=== PATIENT | female | born 1955 | race Caucasian/White ===

== ENCOUNTER 2020-12-05 09:27 | Emergency (ER) | payer OTHER ==
[~2020-12-05] VITALS: Ht 152.4 cm; Wt 54.4 kg
[~2020-12-05 09:27] MED LIST: BCOIRO PO; CALCIUM PO; CHOL10002 PO; CONESTTC PV; DHEA PO; ESOM20 PO; IBUP400 PO; PROGESTERONE CREAM VAG; VITAMIN C COMPLEX PO; VITAMIN D PO; VITAMIN D3 PO; [UNRECOGNIZED DRUG - OTHER] PO
[2020-12-05] MEDS ORDERED: ZOCOR20 MG PO (09:42)
[2020-12-05] MEDS ORDERED: METO50ER PO (09:43)
[2020-12-05] MEDS ORDERED: METO50 PO (09:44)
[2020-12-05] MEDS ORDERED: GABA100 PO ×2 (09:45)
[2020-12-05] MEDS ORDERED: DIAZEPAM5 MG PO (09:46)
[2020-12-05] MEDS ORDERED: BACL10 PO (09:47)
[2020-12-05] MEDS ORDERED: FLUT1DIS2 INH (09:47)
[2020-12-05 10:34] LABS: BASOPHILS ABSOLUTE AUTO 0.03 K/mm3 (0.00-0.23); BASOPHILS PERCENT AUTO 0 % (0-2); EOSINOPHILS PERCENT AUTO 2 % (0-6); Hematocrit 44.4 % (33.0-51.0); Hemoglobin 14.5 g/dL (11.5-16.0); IMMATURE GRAN ABSOLUTE AUTO 0.01 K/mm3 (0.00-0.10); IMMATURE GRAN PERCENT AUTO 0 % (0-1); LYMPHOCYTES ABSOLUTE AUTO 2.27 K/mm3 (0.84-5.20); LYMPHOCYTES PERCENT AUTO 33 % (21-46); MONOCYTES ABSOLUTE AUTO 0.61 K/mm3 (0.16-1.47); MONOCYTES PERCENT AUTO 9 % (4-13); Mean Corpuscular HGB 31.7 pg (26.0-34.0); Mean Corpuscular HGB Conc 32.7 g/dL (31.5-36.5); Mean Corpuscular Volume 97 fL (80-100); Mean Platelet Volume 9.4 fL (9.1-12.4); NEUTROPHILS ABSOLUTE AUTO 3.87 K/mm3 (1.96-9.15); NEUTROPHILS PERCENT AUTO 56 % (41-73); Platelet Count 289 K/mm3 (150-400); RDW Standard Deviation 46.2 fL (35.1-46.3); Red Blood Cell Count 4.57 M/mm3 (3.80-5.20); White Blood Cell Count 6.89 K/mm3 (4.00-11.30)
[2020-12-05 10:41] LABS: Anion Gap 2 mmol/L (6-16); Blood Urea Nitrogen 10 mg/dL (8-24); Bun/Creatinine Ratio 12.5 (12.0-20.0); CO2, Blood 28 mmol/L (21-32); Calcium, Blood 9.2 mg/dL (8.5-10.1); Chloride, Blood 110 mmol/L (98-108); Glomerular Filtration Rate >60 (60-); Glucose, Blood 76 mg/dL (70-99); Potassium, Blood 4.1 mmol/L (3.5-5.5); Sodium, Blood 140 mmol/L (136-145)
[2020-12-05] MEDS ORDERED: HYDROCHLOROTH12.5 MG PO (10:54)
== END 2020-12-05 11:59 | disposition home or self-care (01) ==
LOC: ER 09:27
PROVIDERS: Emergency Medicine
DX: I10 Essential (primary) hypertension (principal); K21.9 Gastro-esophageal reflux disease without esophagitis; J44.9 Chronic obstructive pulmonary disease, unspecified; E78.00 Pure hypercholesterolemia, unspecified; F17.200 Nicotine dependence, unspecified, uncomplicated; Z79.899 Other long term (current) drug therapy; Z88.6 Allergy status to analgesic agent; Z88.5 Allergy status to narcotic agent; Z91.018 Allergy to other foods
CPT/HCPCS: 80048; 85025; 99283; A9270

== ENCOUNTER 2021-10-04 18:52 | Emergency (ER) | payer OTHER ==
[~2021-10-04] VITALS: Ht 152.4 cm; Wt 55.8 kg
[~2021-10-04 18:52] MED LIST changes: -ONDA4ODT MM; -Percocet 5-3251 EACH PO
[2021-10-05] MEDS ORDERED: ONDA4ODT MM (13:17)
[2021-10-05] MEDS ORDERED: Percocet 5-3251 EACH PO (13:17)
== END 2021-10-04 21:53 | disposition left against medical advice (07) ==
LOC: ER 18:52
DX: M54.9 Dorsalgia, unspecified (principal); R51.9 Headache, unspecified; Z79.899 Other long term (current) drug therapy; Z53.21 Procedure and treatment not carried out due to patient leaving prior to being seen by health care provider
CPT/HCPCS: 99282

== ENCOUNTER → 2021-10-04 | Outpatient (CLI) | payer OTHER ==
[~2021-10-04] MED LIST changes: +BACL10 PO; +DIAZEPAM5 MG PO; +FLUT1DIS2 INH; +GABA100 PO; +HYDROCHLOROTH12.5 MG PO; +METO50 PO; +METO50ER PO; +ONDA4ODT MM; +Percocet 5-3251 EACH PO; +ZOCOR20 MG PO
[2021-10-04 18:28] LABS: Alanine Aminotransfer (ALT/SGP 29 U/L (12-78); Albumin, Blood 4.1 g/dL (3.4-5.0); Albumin/Globulin Ratio 1.5 (0.8-1.8); Alk Phos 74 U/L (40-126); Anion Gap 9 mmol/L (6-16); Aspartate Aminotrans (AST/SGOT 19 U/L (12-37); Bilirubin, Total 0.4 mg/dL (0.1-1.0); Blood Urea Nitrogen 7 mg/dL (8-24); CO2, Blood 28 mmol/L (21-32); Calcium, Blood 9.3 mg/dL (8.5-10.1); Chloride, Blood 98 mmol/L (98-108); Creatinine, Blood 0.78 mg/dL (0.40-1.00); Globulin, Blood 2.8 g/dL (2.2-4.0); Glomerular Filtration Rate >60 (60-); Glucose, Blood 83 mg/dL (70-99); Potassium, Blood 3.8 mmol/L (3.5-5.5); Sodium, Blood 135 mmol/L (136-145); Thyroid Stimulating Hormone 1.185 uIU/mL (0.360-4.800); Total Protein, Blood 6.9 g/dL (6.4-8.2)
== END | disposition home or self-care (01) ==
LOC: LAB SHORT 17:56
PROVIDERS: Physician Assistant
DX: I10 Essential (primary) hypertension (principal); R53.83 Other fatigue
CPT/HCPCS: 80053; 84443

== ENCOUNTER 2021-10-05 10:35 | Emergency (ER) | payer OTHER ==
[~2021-10-05] VITALS: Ht 152.4 cm; Wt 55.8 kg
[2021-10-05] MEDS ORDERED: Percocet 5-3251 EACH PO (13:17)
[2021-10-05] MEDS ORDERED: ONDA4ODT MM (13:17)
== END 2021-10-05 13:35 | disposition home or self-care (01) ==
LOC: ER 10:35
DX: M54.50 Low back pain, unspecified (principal); G89.29 Other chronic pain; I10 Essential (primary) hypertension; K21.9 Gastro-esophageal reflux disease without esophagitis; J44.9 Chronic obstructive pulmonary disease, unspecified; F17.200 Nicotine dependence, unspecified, uncomplicated; Z88.6 Allergy status to analgesic agent; Z88.5 Allergy status to narcotic agent; Z88.8 Allergy status to other drugs, medicaments and biological substances; Z91.018 Allergy to other foods; Z79.899 Other long term (current) drug therapy
CPT/HCPCS: 72100; 99283-25; A9270